=== PATIENT | male | born 2005 | race Two or more races ===

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

== ENCOUNTER 2025-04-22 16:39 | Emergency (ER) | payer BC, MEDICAID ==
[2025-04-22] MEDS ORDERED: Sodium Chloride 0.9% 10 ML Syringe FLUSH PRN (17:39)
[2025-04-22] MEDS: Diphtheria,Pertussis(Acell),Tetanus Vaccine 0.5 ML Syringe IM ONE (17:59)
[2025-04-22] MEDS: LORazepam 2 MG/ML SDV IVPUSH ONE (19:35)
[2025-04-22 19:51] VITALS: BP 134/90; PULSE 111
[2025-04-22] MEDS: Take Home: Acetaminophen/HYDROcodone 325-5 MG, 5 Tab Pack PO ONE (20:13)
[2025-04-22] MEDS: Take Home: Cephalexin 500 MG Cap, 6 Cap Pack PO ONE (20:13)
== END 2025-04-22 20:21 | disposition home or self-care (01) ==
LOC: DL.ED 16:39
DX: S91.114A Laceration without foreign body of right lesser toe(s) without damage to nail, initial encounter (principal); Z86.16 Personal history of COVID-19; Z23 Encounter for immunization; W20.8XXA Other cause of strike by thrown, projected or falling object, initial encounter; Y93.89 Activity, other specified
CPT/HCPCS: 12001; 73630; 90471; 90715; 96374; 99284; A9270; J0690